=== PATIENT | male | born 1955 | race Caucasian/White ===

== ENCOUNTER 2023-01-04 08:56 | Outpatient (CLI) | payer BC, SELFPAY | END 2023-01-04 08:57 | disposition home or self-care (01) | PROVIDERS: Visit Provider Nurse Practitioner Family | DX: I87.2 Venous insufficiency (chronic) (peripheral) (principal); L97.522 Non-pressure chronic ulcer of other part of left foot with fat layer exposed; G60.9 Hereditary and idiopathic neuropathy, unspecified; I25.10 Atherosclerotic heart disease of native coronary artery without angina pectoris | CPT/HCPCS: 11042; 99204 ==

== ENCOUNTER 2023-01-13 10:57 | Outpatient (CLI) | payer BC, SELFPAY | END 2023-01-13 10:58 | disposition home or self-care (01) | LOC: WOUND 10:57 | PROVIDERS: Visit Provider Nurse Practitioner Family | DX: I87.2 Venous insufficiency (chronic) (peripheral) (principal); L97.522 Non-pressure chronic ulcer of other part of left foot with fat layer exposed; G60.9 Hereditary and idiopathic neuropathy, unspecified | CPT/HCPCS: 97597 ==

== ENCOUNTER 2023-02-17 10:49 | Outpatient (CLI) | payer BC, SELFPAY | END 2023-02-17 10:50 | disposition home or self-care (01) | LOC: WOUND 10:49 | PROVIDERS: Visit Provider Nurse Practitioner Family | DX: G60.9 Hereditary and idiopathic neuropathy, unspecified (principal); L97.522 Non-pressure chronic ulcer of other part of left foot with fat layer exposed; I87.2 Venous insufficiency (chronic) (peripheral); I25.10 Atherosclerotic heart disease of native coronary artery without angina pectoris | CPT/HCPCS: 97597; 99213 ==

== ENCOUNTER 2024-06-14 12:26 | Outpatient (CLI) | payer BC, SELFPAY | END 2024-06-14 12:27 | disposition home or self-care (01) | LOC: WOUND 12:26 | PROVIDERS: Visit Provider Nurse Practitioner Family | DX: L73.2 Hidradenitis suppurativa (principal) | CPT/HCPCS: 97597; G0463 ==